=== PATIENT | male | born 1995 | race Caucasian/White ===

== ENCOUNTER 2017-06-28 18:44 | Emergency (ER) | payer BC, OTHER ==
[~2017-06-28] VITALS: Ht 170.2 cm; Wt 90.5 kg
[2017-06-28 19:22] VITALS: Ht 170.2 cm; Wt 90.5 kg
[2017-06-28] MEDS ORDERED: DIPHTH/TET/ACEL PERTUSS (ADULT) 0.5 ML VIAL IM* ONE (21:00)
--- NOTE | 2017-06-28 21:24 | RADRPT ---
PROCEDURE: XR Left Foot. CLINICAL INDICATION: The patient stepped on a nail with the left foot. Left foot pain. TECHNIQUE: Three views. Frontal, lateral, and oblique. COMPARISON: None. FINDINGS: There is no fracture or dislocation. The soft tissues are normal. Articular surfaces are intact. There is no lytic or blastic lesion. There is no radiopaque foreign body. IMPRESSION: 1. Normal images of the left foot. 2. No radiopaque foreign body. RPTAT: QQ .Brendan Connell MD, MD Date Time Electronically viewed and signed by .Brendan Connell MD, on 06/28/2017 21:23 .R/
[2017-06-28] MEDS ORDERED: CIPR500T4 PO (21:56)
[2017-06-28] MEDS ORDERED: IBUP-1542 PO (21:56)
--- NOTE | 2017-06-29 01:51 | ERD ---
ER Documentation Chief Complaint Chief Complaint left foot pain s/p stepped on nail today at home HPI 21-year-old male patient with no significant past medical history presents to the ED stating that he stepped on a nail at work with his left shoe at work. Reports that he was wearing his work shoes. States that he is not up-to-date with his tetanus vaccine. Denies any fever, chills, loss of sensation, loss of range of motion, weakness, numbness or tingling, nausea, vomiting. Denies any decreased range of motion or increased redness or swelling. ROS All systems reviewed and are negative except as per history of present illness. Medications Home Meds Active Scripts Ibuprofen* (Motrin*) 600 Mg Tab, 600 MG PO Q6, #30 TAB Prov:FILEMON HUERTA PA-C 06/28/17 Ciprofloxacin Hcl* (Ciprofloxacin Hcl*) 500 Mg Tablet, 500 MG PO BID for 7 Days , TAB Prov:FILEMON HUERTA PA-C 06/28/17 Allergies Allergies: Coded Allergies: No Known Allergy (Unverified , 06/28/17) PMhx/Soc Medical and Surgical Hx: pt denies Medical Hx, pt denies Surgical Hx History of Surgery: No Anesthesia Reaction: No Hx Neurological Disorder: No Hx Respiratory Disorders: No Hx Cardiac Disorders: No Hx Psychiatric Problems: No Hx Miscellaneous Medical Probl: No Hx Alcohol Use: Yes Hx Substance Use: No Hx Tobacco Use: Yes Smoking Status: Current some day smoker Physical Exam Vitals Vital Signs Date Time Temp Pulse Resp B/P Pulse Ox O2 Delivery O2 Flow Rate FiO2 06/28/17 19:22 98.1 91 18 139/72 98 Physical Exam Const: [id number], well-nourished. In no acute distress. Head: Atraumatic, normocephalic Eyes: Normal Conjunctiva without injection ENT: Normal external ear, nose and mouth. Neck: Full range of motion. No meningismus. Resp: Clear to auscultation bilaterally. No wheezing, rhonchi, rales, or crackles. No accessory muscle use. No retractions. Cardio: Regular rate and rhythm, no murmurs Skin: No petechiae or rashes Back: No midline tenderness. No CVA tenderness. Ext: No cyanosis, or edema. Cap refill less than 2 seconds. Distal pulses intact bilaterally. Punctate wound noted at the left plantar foot with no surrounding erythema or edema. Slight tenderness to position of the left plantar foot at the puncture wound. No deformities. Full range of motion of upper and lower extremities with flexion and extension. Patient was able to dorsi flex and extend his bilateral feet. Neur: Awake and alert. Normal gait and coordination. Muscle strength 5/5. Sensation intact bilaterally. Psych: Normal Mood and Affect Results 24 hrs Current Medications Medications (Trade) Dose Ordered Sig/Mirza Route PRN Reason Start Time Stop Time Status Last Admin Dose Admin Diphtheria/ Tetanus/Acell Pertussis (Adacel) 0.5 ml ONCE ONCE IM* 06/28/17 21:00 06/28/17 21:01 DC 06/28/17 21:19 Procedures/MDM 21-year-old male patient with no significant past medical history presents to the ED complaining of left foot pain that started after stepping on a nail with his shoes on at work. Patient is afebrile and nontoxic-appearing. Patient has normal vital signs. A left foot x-ray was ordered to further evaluate patient. X-ray shows no evidence of fractures or dislocations. No evidence of foreign bodies. Tetanus vaccine is dated here in the ED. Patient is appropriate for outpatient antibiotics. Neurovascularly intact. Patient's extremity symptoms have stabilized while they have been evaluated in the department and are appropriate for outpatient follow up. No evidence of fractures, dislocations, compartment syndrome, neurologic injury, vascular injury, open joint, open fracture, tendon laceration, septic arthritis, osteomyelitis, DVT, foreign body , or other emergent conditions. Discharge medications: Ibuprofen, ciprofloxacin to cover for pseudomonas bacteria Follow up with primary care physician in 1-2 days. Instructed patient to return to the ED sooner for any worsening symptoms. Patient's questions were answered. Patient understood and agreed with discharge plan. Patient discharged stable. Departure Diagnosis: Primary Impression: Injury of foot Encounter type: initial encounter Laterality: left Qualified Code: S99.922A - Injury of left foot, initial encounter Condition: Stable Patient Instructions: Puncture Wound, Foot Referrals: [facility]EVIN HERRMANN (PCP) [facility] YOU HAVE RECEIVED A MEDICAL SCREENING EXAM AND THE RESULTS INDICATE THAT YOU DO NOT HAVE A CONDITION THAT REQUIRES URGENT TREATMENT IN THE EMERGENCY DEPARTMENT. FURTHER EVALUATION AND TREATMENT OF YOUR CONDITION CAN WAIT UNTIL YOU ARE SEEN IN YOUR DOCTORS OFFICE WITHIN THE NEXT 1-2 DAYS. IT IS YOUR RESPONSIBILITY TO MAKE AN APPOINTMENT FOR FOLOW-UP CARE. IF YOU HAVE A PRIMARY DOCTOR --you should call your primary doctor and schedule an appointment IF YOU DO NOT HAVE A PRIMARY DOCTOR YOU CAN CALL OUR PHYSICIAN REFERRAL HOTLINE AT IF YOU CAN NOT AFFORD TO SEE A PHYSICIAN YOU CAN CHOSE FROM THE FOLLOWING [facility] [address] [facility] [address] [facility] [address] [facility] [address] [facility] [address] [facility]. [facility] [address] [facility]. [facility] YOU HAVE RECEIVED A MEDICAL SCREENING EXAM AND THE RESULTS INDICATE THAT YOU DO NOT HAVE A CONDITION THAT REQUIRES URGENT TREATMENT IN THE EMERGENCY DEPARTMENT. FURTHER EVALUATION AND TREATMENT OF YOUR CONDITION CAN WAIT UNTIL YOU ARE SEEN IN YOUR DOCTORS OFFICE WITHIN THE NEXT 1-2 DAYS. IT IS YOUR RESPONSIBILITY TO MAKE AN APPOINTMENT FOR FOLOW-UP CARE. IF YOU HAVE A PRIMARY DOCTOR --you should call your primary doctor and schedule and appointment IF YOU DO NOT HAVE A PRIMARY DOCTOR YOU CAN CALL OUR PHYSICIAN REFERRAL HOTLINE AT . IF YOU CAN NOT AFFORD TO SEE A PHYSICIAN YOU CAN CHOSE FROM THE FOLLOWING [facility]: [facility] [address] [place] [address] [facility] [address] [place] [address] [facility] [address] [place] [address] [facility] Additional Instructions: Call your primary care doctor TOMORROW for an appointment during the next 2-3 days.See the doctor sooner or return here if your condition worsens before your appointment time. FILEMON HUERTA PA-C Jun 29, 2017 01:51
== END 2017-06-28 22:16 | disposition home or self-care (01) ==
LOC: FTE 18:44
DX: S91.332A Puncture wound without foreign body, left foot, initial encounter (principal); F17.210 Nicotine dependence, cigarettes, uncomplicated; W45.0XXA Nail entering through skin, initial encounter; Y92.009 Unspecified place in unspecified non-institutional (private) residence as the place of occurrence of the external cause
CPT/HCPCS: 73630; 90471; 90715; Z7502

== ENCOUNTER 2019-02-01 02:21 | Emergency (ER) | payer BC, MEDICAID ==
[~2019-02-01] VITALS: Ht 165.1 cm; Wt 89.6 kg
[~2019-02-01 02:21] MED LIST: CIPR500T4 PO; IBUP-1542 PO
[2019-02-01 02:38] VITALS: Ht 165.1 cm; Wt 89.6 kg
--- NOTE | 2019-02-01 03:10 | ERD ---
ER Documentation Chief Complaint Chief Complaint right eye pain s/p fall from skateboard HPI The patient is a 23-year-old male, presenting to the ER because of right eye pain after he fell yesterday around 1 AM. He complains of redness and blurred vision. He does wear nearsighted glasses but he does not have it with him. He denies headache, dizziness, neck pain, chest pain, dyspnea, abdominal pain, vomiting, dysuria, diarrhea. He smokes and drinks and does illicit drug Past medical/surgical history: None ROS All systems reviewed and are negative except as per history of present illness. Medications Home Meds Active Scripts Ibuprofen* (Motrin*) 600 Mg Tab, 600 MG PO Q6, #30 TAB Prov:FILEMON HUERTA PA-C 06/28/17 Ciprofloxacin Hcl* (Ciprofloxacin Hcl*) 500 Mg Tablet, 500 MG PO BID for 7 Days, TAB Prov:FILEMON HUERTA PA-C 06/28/17 Allergies Allergies: Coded Allergies: No Known Allergy (Unverified , 06/28/17) PMhx/Soc History of Surgery: No Anesthesia Reaction: No Hx Neurological Disorder: No Hx Respiratory Disorders: No Hx Cardiac Disorders: No Hx Psychiatric Problems: No Hx Miscellaneous Medical Probl: No Hx Alcohol Use: Yes Hx Substance Use: No Hx Tobacco Use: Yes Physical Exam Vitals Vital Signs Date Temp Pulse Resp B/P (MAP) Pulse Ox O2 O2 Flow FiO2 Time Delivery Rate 02/01/19 75 18 121/81 100 Room Air 03:35 (94) 02/01/19 99.1 91 16 151/92 97 02:38 (111) Physical Exam Const: No acute distress. Head: Atraumatic. Eyes: Right eye with erythematous conjunctiva, no nystagmus, pupils equally round and reactive to light ENT: Normal External Ears, Nose and Mouth. Neck: Full range of motion. No meningismus. Resp: Clear to auscultation bilaterally. Cardio: Regular rate and rhythm. Abd: Soft, non distended, normal bowel sounds, non tender. Skin: No petechiae or rashes. Back: No midline or flank tenderness. Ext: No cyanosis, or edema. Neur: Awake and alert. No focal deficit Psych: Normal Mood and Affect. Procedures/MDM [address] [address] Radiology Main Line: [phone] DIAGNOSTIC IMAGING REPORT Patient: HEATH YANEZ : 1995 Age: 23 Sex: M MR #: [id number] DOS: 02/01/19 0338 Ordering MD: KELLY RAMIREZ MD Location: E/R Room/Bed: PROCEDURE: CT Orbits without contrast. CLINICAL INDICATION: Pain TECHNIQUE: A CT of the orbits was performed on a [employer]Loop 64-slice CT scanner utilizing thin section axial images without the use of intravenous c ontrast. Sagittal and coronal reformatted images were made. The images were reviewed on a PACS workstation. DICOM images are available. The CTDIvol is 29.11 mGy and the DLP is 422.98 mGycm. One or more of the following dose reduction techniques were utilized: 1.) Automated exposure control 2.) Adjustment of the mA +/- kV according to patient's size 3.) Use of iterative reconstruction technique. COMPARISON: None. FINDINGS: There is mild right periorbital soft tissue swelling. The osseous structures are intact with no fracture or osseous abnormality identified. The extraocular muscles and optic nerves are bilaterally symmetric and normal in appearance. The globes are normal. The lacrimal glands appear normal. No abnormal attenuation of the intra or extraconal fat is identified. The sella turcica is unremarkable. IMPRESSION: Right periorbital soft tissue swelling. No evidence of fracture or globe injury. [facility] Physician Xander Date Time Electronically viewed and signed by Physician Xander on 02/01/2019 04:35 CS/ CC: KELLY RAMIREZ MD [phone] Ocular ultrasound is pending MEDICAL MAKING DECISION: The patient is a 23-year-old male, presenting with acute right subconjunctival hemorrhage, acute eye injury The differential diagnoses considered include but are not limited to retinal detachment, vitreous hemorrhage, keratitis, hyphema Departure Diagnosis: Primary Impression: Eye injury Condition: Good Comments I discussed the findings with the patient. I advised the patient to follow-up with an machine edge bander in the morning for further evaluation and return if any concern. He did not want to wait for the ocular ultrasound and he wanted to sign out AGAINST MEDICAL ADVICE The patient signed out AGAINST MEDICAL ADVICE. Risks, benefits, alternatives were explained to the patient. Risks include but not limited to and permanent disability Disclaimer: Inadvertent spelling and grammatical errors are likely due to EHR/dictation software use and do not reflect on the overall quality of patient care. Also, please note that the electronic time recorded on this note does not necessarily reflect the actual time of the patient encounter. Disclaimer: Inadvertent spelling and grammatical errors are likely due to EHR/dictation software use and do not reflect on the overall quality of patient care. Also, please note that the electronic time recorded on this note does not necessarily reflect the actual time of the patient encounter. KELLY RAMIREZ MD February 01, 2019 03:10
[2019-02-01 03:35] VITALS: BP 121/81; PULSE 75; RESP 18
== END 2019-02-01 06:20 | disposition left against medical advice (07) ==
LOC: E/R 02:21
DX: S05.91XA Unspecified injury of right eye and orbit, initial encounter (principal); F17.210 Nicotine dependence, cigarettes, uncomplicated; V00.131A Fall from skateboard, initial encounter
CPT/HCPCS: 70480; 76536; Z7502